=== PATIENT | male | born 1990 | race Caucasian/White ===

== ENCOUNTER 2016-11-29 01:42 | Emergency (ER) | payer OTHER ==
[2016-11-29 02:22] VITALS: BP 140/90
== END 2016-11-29 02:22 | disposition home or self-care (01) ==
LOC: ED 01:42
DX: K12.0 Recurrent oral aphthae (principal); R51 Headache

== ENCOUNTER 2017-08-14 19:55 | Emergency (ER) | payer SELFPAY ==
[~2017-08-14] VITALS: Ht 170.2 cm; Wt 89.8 kg
[2017-08-14 20:07] VITALS: Ht 170.2 cm; Wt 89.8 kg
[2017-08-14 20:59] VITALS: BP 135/83
== END 2017-08-14 20:59 | disposition home or self-care (01) ==
LOC: ED 19:55
DX: R22.41 Localized swelling, mass and lump, right lower limb (principal); R03.0 Elevated blood-pressure reading, without diagnosis of hypertension; F31.9 Bipolar disorder, unspecified

== ENCOUNTER 2017-10-23 01:12 | Emergency (ER) | payer SELFPAY ==
[~2017-10-23] VITALS: Ht 170.2 cm; Wt 89.6 kg
[2017-10-23 01:21] VITALS: Ht 170.2 cm; Wt 89.6 kg
[2017-10-23 02:16] VITALS: BP 130/87
== END 2017-10-23 02:16 | disposition home or self-care (01) ==
LOC: ED 01:12
PROC: 0S9B3ZZ Drainage of Left Hip Joint, Percutaneous Approach (ICD-10-PCS; principal; 2017-10-23)
DX: M70.62 Trochanteric bursitis, left hip (principal); F31.9 Bipolar disorder, unspecified; Y93.89 Activity, other specified
CPT/HCPCS: J1885; J2001

== ENCOUNTER 2018-12-12 00:59 | Emergency (ER) | payer OTHER ==
[~2018-12-12] VITALS: Ht 170.2 cm; Wt 98.9 kg
[2018-12-12 01:05] VITALS: Ht 170.2 cm; Wt 98.9 kg
[2018-12-12 04:23] VITALS: BP 139/87
== END 2018-12-12 04:23 | disposition home or self-care (01) ==
LOC: ED 00:59
DX: G89.29 Other chronic pain (principal); M54.5 Low back pain; I10 Essential (primary) hypertension; F31.9 Bipolar disorder, unspecified

== ENCOUNTER 2019-08-11 06:13 | Emergency (ER) | payer OTHER ==
[~2019-08-11] VITALS: Ht 170.2 cm; Wt 93.9 kg
[2019-08-11 07:11] VITALS: BP 144/102
[2019-08-11 07:29] LABS: microscopic required? NO
[2019-08-11 08:40] LABS: UA SPECIFIC GRAVITY 1.015 (1.005-1.035); urine erythrocyte NEGATIVE (NEGATIVE)
== END 2019-08-11 07:49 | disposition home or self-care (01) ==
LOC: ED 06:13
PROVIDERS: Emergency Medicine
DX: R35.0 Frequency of micturition (principal); I10 Essential (primary) hypertension; F31.9 Bipolar disorder, unspecified
CPT/HCPCS: 82962; 99406